=== PATIENT | female | born 1985 | race African-American/Black ===

== ENCOUNTER 2020-07-25 04:38 | Day surgery (SDC) | payer OTHER ==
[2020-07-18 15:17] VITALS: BMI 36.6
[2020-07-25 09:08] VITALS: TEMP 98.2
[2020-07-25 10:10] VITALS: BP 118/81; PULSE 71
== END 2020-07-25 10:00 | disposition home or self-care (01) ==
LOC: JASU-ENDO 04:38
PROVIDERS: ATTEND Internal Medicine Gastroenterology
PROC: 0DB98ZX Excision of Duodenum, Via Natural or Artificial Opening Endoscopic, Diagnostic (ICD-10-PCS; 2020-07-25)
PROC: 0DB68ZX Excision of Stomach, Via Natural or Artificial Opening Endoscopic, Diagnostic (ICD-10-PCS; 2020-07-25)
PROC: 0DB38ZX Excision of Lower Esophagus, Via Natural or Artificial Opening Endoscopic, Diagnostic (ICD-10-PCS; 2020-07-25)
PROC: 0DBK8ZX Excision of Ascending Colon, Via Natural or Artificial Opening Endoscopic, Diagnostic (ICD-10-PCS; principal; 2020-07-25 08:00)
DX: K59.00 Constipation, unspecified (principal); D12.2 Benign neoplasm of ascending colon; K64.8 Other hemorrhoids; K21.00 Gastro-esophageal reflux disease with esophagitis, without bleeding; K44.9 Diaphragmatic hernia without obstruction or gangrene; K29.80 Duodenitis without bleeding; K29.50 Unspecified chronic gastritis without bleeding
CPT/HCPCS: 81025; 88305-TC; 88342-TC

== ENCOUNTER 2023-03-19 15:20 | Emergency (ER) | payer OTHER ==
[2023-03-19 15:48] VITALS: BP 112/80; PULSE 80; RESP 16; TEMP 98.7; BMI 37.2
[2023-03-19 17:51] LABS: HEMATOCRIT 39.8 % (32.4-45.2); MCH 30.3 pg (25.7-33.7); MCHC 32.6 g/dl (32.0-36.0); MEAN CELL VOLUME 92.8 fl (80-96); MEAN PLT VOLUME 7.7 fl (7.5-11.1); RBC 4.29 10^6/uL (3.60-5.2); RDW 14.3 % (11.6-15.6); WHITE BLOOD COUNT 9.9 10^3/uL (4.0-10.8)
[2023-03-19 18:03] LABS: ALBUMIN 4.4 g/dl (3.4-5.0); BLOOD UREA NITROGEN 8.8 mg/dl (7-18); CALCIUM 9.4 mg/dl (8.5-10.1); CREATININE 0.7 mg/dl (0.6-1.3); POTASSIUM 3.5 mmol/L (3.5-5.1); SGOT/AST 185.4 U/L (15-37); SGPT/ALT 54.7 U/L (7-52); TOT PROT 7.2 g/dl (6.4-8.2)
[2023-03-19 18:56] LABS: PLATELET ESTIMATE ADEQUATE
[2023-03-19 19:10] LABS: BILIRUBIN,TOTAL 0.5 mg/dL (0.2-1)
== END 2023-03-19 19:35 | disposition home or self-care (01) ==
LOC: FER 15:20
DX: R07.89 Other chest pain (principal); R06.02 Shortness of breath; R42 Dizziness and giddiness
CPT/HCPCS: 36415; 71046-TC-FY; 80053; 84484; 85025; 93005; 99285-25

== ENCOUNTER → 2023-09-10 | Day surgery (SDC) | payer OTHER | END | disposition home or self-care (01) | LOC: JRADIR 09:56 | PROC: 0G9G3ZX Drainage of Left Thyroid Gland Lobe, Percutaneous Approach, Diagnostic (ICD-10-PCS; principal; 2023-09-10) | DX: E04.1 Nontoxic single thyroid nodule (principal) | CPT/HCPCS: 10005; 76942; 88173; 88305-TC ==

== ENCOUNTER 2023-11-12 12:02 | Emergency (ER) | payer OTHER ==
[2023-11-12 12:49] VITALS: BP 121/87; PULSE 81; RESP 16; TEMP 99; BMI 38.0
[2023-11-12 15:34] LABS: HEMATOCRIT 39.1 % (32.4-45.2); HEMOGLOBIN 13.1 G/dL (10.7-15.3); MCH 30.4 pg (25.7-33.7); MCHC 33.6 g/dl (32.0-36.0); MEAN CELL VOLUME 90.4 fl (80-96); MEAN PLT VOLUME 7.7 fl (7.5-11.1); PLATELET COUNT 328.9 10^3/uL (134-434); RBC 4.32 10^6/uL (3.60-5.2); RDW 15.4 % (11.6-15.6); WHITE BLOOD COUNT 10.4 10^3/uL (4.0-10.8)
[2023-11-12 15:38] LABS: ALBUMIN 4.4 g/dl (3.4-5.0); BILIRUBIN,TOTAL 0.3 mg/dl (0.2-1); CALCIUM 9.9 mg/dl (8.5-10.1); CREATININE 0.8 mg/dl (0.6-1.3); POTASSIUM 3.9 mmol/L (3.5-5.1); TOT PROT 7.5 g/dl (6.4-8.2)
== END 2023-11-12 16:52 | disposition home or self-care (01) ==
LOC: FER 12:02
DX: R20.0 Anesthesia of skin (principal); R20.2 Paresthesia of skin
CPT/HCPCS: 36415; 70450-TC; 80053; 81025; 85025; 99284-25